=== PATIENT | female | born 1930 | race Caucasian/White ===

== ENCOUNTER 2016-07-24 12:10 | Day surgery (SDC) | payer MEDICARE ==
[~2016-07-24] VITALS: Ht 152.4 cm; Wt 63.5 kg
[~2016-07-24 12:10] MED LIST: ALEN70TA2 PO; AMLO5TAB2 PO; ASPI-973 PO; ATEN25TA PO; CHOL100045 PO; CYAN500 PO; LISI-567 PO; LOVA20TA PO; METF-496 PO; OMEP20TA86 PO; Sodium Chloride LOK Flush 10 mL Syringe IV PRN; TRAM50TA2 PO; fentaNYL-PF 50 mCg/mL 2 mL Inj IVPUSH PRN
[2016-07-24] MEDS: 0.9% Sodium Chloride 1,000 ML IV SCH ×3 (12:29→13:33)
[2016-07-24 12:41] VITALS: BP 141/68; PULSE 96; RESP 16; O2SAT 99
[2016-07-24 13:40] VITALS: BP 111/64; PULSE 72; RESP 14; O2SAT 93
[2016-07-24 13:50] VITALS: BP 94/53; PULSE 67; RESP 16; O2SAT 94
[2016-07-24 13:54] VITALS: BP 98/61; PULSE 72; RESP 14; O2SAT 94
[2016-07-24 14:00] VITALS: BP 108/51; PULSE 70; RESP 14; O2SAT 96
--- NOTE | 2016-07-24 16:55 | ENDO ---
[address] [address] ENDOSCOPY PROCEDURE PATIENT: ANIL OTOOLE : 1930 MR#: [id number] ADMIT: 07/24/2016 JOB ID: [id number] DATE: 07/24/2016 PRIMARY PROVIDER: Ted Burleson MD PROCEDURE: Colonoscopy. INDICATIONS: An 86-year-old female with a family history of colon cancer. EQUIPMENT: PCF H 180 AL. SEDATION: 3 mg Versed and 75 mcg fentanyl. COMPLICATIONS: None identified. BOWEL PREPARATION: Fair, adequate exam. PROCEDURAL INFORMATION: After the risks and benefits were explained, written and verbal informed consent was obtained. The patient was brought into the endoscopy suite placed into the left lateral decubitus position. Sedation was achieved as above. A digital rectal examination accomplished. No significant pathology appreciated. The scope was introduced into the rectum and advanced under direct visualization to the level of the cecum, as identified by the appendiceal orifice and ileocecal valve. The scope was slowly withdrawn to carefully examine the mucosa for any defects or lesions. Multiple direct views were made through the dentate line for exclusion of pathology. The colon was decompressed. The scope removed from the patient who tolerated the procedure well. FINDINGS: Some mild diverticulosis was seen in the left colon. No significant polyps, mass lesions, or inflammatory features identified throughout. ENDOSCOPIC DIAGNOSES: 1. Diverticulosis. 2. Otherwise visually unremarkable colonoscopy to cecum. RECOMMENDATIONS: Further screening colonoscopy is not required as this places the patient at age 89.
== END 2016-07-24 23:59 | disposition home or self-care (01) ==
LOC: END 12:10
PROVIDERS: ATTEND Internal Medicine Gastroenterology
DX: Z12.11 Encounter for screening for malignant neoplasm of colon (principal); K57.30 Diverticulosis of large intestine without perforation or abscess without bleeding; Z80.0 Family history of malignant neoplasm of digestive organs; E11.9 Type 2 diabetes mellitus without complications; I12.9 Hypertensive chronic kidney disease with stage 1 through stage 4 chronic kidney disease, or unspecified chronic kidney disease; D64.9 Anemia, unspecified; K21.9 Gastro-esophageal reflux disease without esophagitis; E78.5 Hyperlipidemia, unspecified; N18.3 Chronic kidney disease, stage 3 (moderate); M81.0 Age-related osteoporosis without current pathological fracture; Z79.82 Long term (current) use of aspirin; Z79.84 Long term (current) use of oral hypoglycemic drugs
CPT/HCPCS: G0105; J2250; J7030